=== PATIENT | male | born 1985 | race Caucasian/White ===

== ENCOUNTER 2021-11-19 17:16 | Emergency (ER) | payer SELFPAY ==
[~2021-11-19] VITALS: Ht 182.9 cm; Wt 84.1 kg
[~2021-11-19 17:16] MED LIST: FOLI1TAB27 PO; LORA-269 PO; MULT-1085 PO
[2021-11-19 17:32] VITALS: BP 140/83
[2021-11-19 18:26] LABS: BASOPHILS % (AUTO) 0.3 % (0-1); EOSINOPHILS # (AUTO) 0.2 X10'3 (0-0.9); EOSINOPHILS % (AUTO) 2.9 % (0-6); HEMATOCRIT 42.9 % (42.0-52.0); HEMOGLOBIN 14.6 g/dl (14.0-17.9); LYMPHOCYTES # (AUTO) 0.9 X10'3 (1.1-4.8); LYMPHOCYTES % (AUTO) 15.3 % (21-51); MEAN CORPUSCULAR HEMOGLOBIN 27.4 PG (27.0-31.0); MEAN CORPUSCULAR HGB CONC 34.1 g/dL (33.0-36.5); MEAN CORPUSCULAR VOLUME 80.4 FL (78-98); MEAN PLATELET VOLUME 6.8 FL (7.4-10.4); MONOCYTES # (AUTO) 0.8 X10'3 (0-0.9); MONOCYTES % (AUTO) 12.9 % (2-12); NEUTROPHILS # (AUTO) 4.1 X10'3 (1.8-7.7); NEUTROPHILS % (AUTO) 68.6 % (42-75); PLATELET COUNT 226 X10'3 (140-440); RED BLOOD COUNT 5.33 X10'6 (4.70-6.10); RED CELL DISTRIBUTION WIDTH 16.3 % (11.5-14.5)
[2021-11-19 19:11] LABS: ALANINE AMINOTRANSFERASE 110 U/L (12-78); ALBUMIN 3.9 G/DL (3.4-5.0); ALBUMIN/GLOBULIN RATIO 0.8 (1.1-1.5); ALKALINE PHOSPHATASE 84 IU/L (46-116); ANION GAP 12 (8-16); ASPARTATE AMINO TRANSFERASE 57 U/L (10-37); BILIRUBIN,TOTAL 0.4 MG/DL (0.1-1.0); BLOOD UREA NITROGEN 14 MG/DL (7-18); BUN/CREATININE RATIO 18.4 (5.4-32.0); CALCIUM 9.3 MG/DL (8.5-10.1); CHLORIDE 103 MMOL/L (99-107); CREATININE 0.76 MG/DL (0.60-1.10); GLUCOSE 94 MG/DL (70-104); POTASSIUM 3.9 MMOL/L (3.5-5.1); SODIUM 142 MMOL/L (135-145); TOTAL CARBON DIOXIDE 27.3 MMOL/L (24-32); TOTAL PROTEIN 8.7 G/DL (6.4-8.2); eGFR > 90 ML/MIN
[2021-11-19 19:17] LABS: C-REACTIVE PROTEIN 14.28 MG/DL (0.0-0.5)
[2021-11-19] MEDS ORDERED: cephalexin 250mg capsule PO ONE (19:20)
[2021-11-19] MEDS ORDERED: CEPH-585 PO (19:26)
== END 2021-11-19 19:33 | disposition home or self-care (01) ==
LOC: ER 17:17
DX: L08.9 Local infection of the skin and subcutaneous tissue, unspecified (principal); L03.115 Cellulitis of right lower limb; M25.571 Pain in right ankle and joints of right foot; Z72.89 Other problems related to lifestyle; Z79.2 Long term (current) use of antibiotics; Z79.899 Other long term (current) drug therapy
CPT/HCPCS: 36415; 80053; 84145; 85025; 85651; 86140; 99283

== ENCOUNTER 2023-07-30 01:03 | Emergency (ER) | payer MEDICAID ==
[~2023-07-30] VITALS: Ht 182.9 cm; Wt 77.3 kg
[2023-07-30 01:41] VITALS: TEMP 98.8
[2023-07-30 02:30] VITALS: BP 127/73; PULSE 92; RESP 18; O2SAT 98
[2023-07-30] MEDS ORDERED: normal saline 1000ml 1,000 ML IV ONE (02:35)
--- NOTE | 2023-07-30 03:13 | NUR ---
3 failed PIV attempts, left bicep, left basilic, and right bicep. Second RN came in to attempt US guided PIV, patient refused stating that he wanted to talk to the MD. MD came in and tried to tell patient that he needed to let RN attempt US guided PIV or the only other option would be to start a central line. Patient refused central line placement by MD. Stated that he wanted different nurses. Charge nurse was called into room and explained to patient his options and patient continued to refuse to let staff attempt any other PIV. Charge nurse explained to patient that if he wasn't going to allow staff to treat him and do the necessary things in order to treat him that he could sign out AMA. MD was again notified and went in to speak with patient.
[2023-07-30] MEDS ORDERED: DOXY-356 PO (03:25)
--- NOTE | 2023-07-30 03:35 | NUR ---
MD attempted to convince patient to allow him to start a central line again. Patient stated to current MD that he wanted a different doctor and did not want Dr. Estrada to attempt a central line. MD told patient that there was no other doctor to see him and that since he has refused care and to allow staff to attempt PIV, US guided IV, and central line, lines that would be needed to test his blood and treat his infection, an infection that if left untreated could lead to the loss of his arm. Patient continued to states that he wanted to see a different doctor and have different nurses. AMA drawn up and explained to patient again that he could loose his arm if he didn't allow treatment. Patient stated that he wasn't refusing treatment but that he wanted to have a different doctor for a second opinion and different nurses, didn't want nurses to continue attempt PIV or US guided and was sure that another doctor would not agree with central line placement. It was explained to patient that there wasn't another ED doctor that he could see and that another doctor will still want a PIV or central line started to run blood tests and give IV antibiotics. PAO at bedside also attempted to explain to patient that he needed to allow staff to start IV, draw blood, and give him medications, patient argued with PAO as well. Patient refused to sign AMA form so this nurse and a second nurse co-signed form. ED Charge nurse aware. Patient was given a paper RX for an antibiotic at time of AMA.
== END 2023-07-30 03:25 | disposition left against medical advice (07) ==
LOC: ER 01:04
DX: S60.511A Abrasion of right hand, initial encounter (principal); L03.113 Cellulitis of right upper limb; F17.200 Nicotine dependence, unspecified, uncomplicated; F10.10 Alcohol abuse, uncomplicated; Z79.899 Other long term (current) drug therapy; X58.XXXA Exposure to other specified factors, initial encounter; Y93.89 Activity, other specified; Y92.89 Other specified places as the place of occurrence of the external cause; Y99.8 Other external cause status; Y90.9 Presence of alcohol in blood, level not specified
CPT/HCPCS: 99283; J7030

== ENCOUNTER 2023-08-15 02:23 | Emergency (ER) | payer MEDICAID ==
[~2023-08-15] VITALS: Ht 182.9 cm; Wt 77.0 kg
[2023-08-15] MEDS ORDERED: SULF1TAB49 PO (02:46)
[2023-08-15] MEDS ORDERED: CEPH-585 PO (02:46)
[2023-08-15 03:26] VITALS: BP 132/96; PULSE 92; RESP 18; TEMP 98.2; O2SAT 97
== END 2023-08-15 03:28 ==
LOC: ER 02:24
DX: L03.113 Cellulitis of right upper limb (principal); L03.114 Cellulitis of left upper limb; Z72.89 Other problems related to lifestyle; Z79.899 Other long term (current) drug therapy
CPT/HCPCS: 99283